=== PATIENT | female | born 1970 | race Hispanic/Latino ===

== ENCOUNTER 2018-02-02 13:52 | Inpatient (IN) | payer MEDICARE, MEDICAID ==
[2018-02-02 14:02] VITALS: BMI 42.4
--- NOTE | 2018-02-02 14:11 | ED PDOC ---
Arrival/HPI - General Chief Complaint: Psychiatric Evaluation Time Seen by Provider: 02/02/18 14:05 Historian: Patient - History of Present Illness Narrative History of Present Illness (Text): 02/02/18 14:10 47 year old female, with past medical history of Atrial fibrillation, sleep apnea, and seizure disorder, presents to the Emergency Department for psychiatric admission under Dr. Marcella valdivia. Patient denies any somatic complaints. Patient denies any suicidal or homicidal ideation. Patient denies any fever, chills, nausea, vomiting, diarrhea, abdominal pain, chest pain, shortness of breath, cough, headahce, dizziness, neck pain, back pain, or any other complaints. Time/Duration: Prior to Arrival Symptom Onset: Gradual Activities at Onset: Light Context: Home Past Medical History - Provider Review Nursing Documentation Reviewed: Yes - Infectious Disease Hx of Infectious Diseases: None - Reproductive Menopause: No - Cardiac Hx Atrial Fibrillation: Yes Hx Cardiac Arrhythmia: Yes (bradycardia with PPM) Hx Pacemaker: Yes - Pulmonary Hx Sleep Apnea: Yes - Neurological Hx Seizures: Yes (last seizure 1 mo ago) - HEENT Hx HEENT Disorder: No - Renal Hx Kidney Stones: Yes (3 mo ago) - Endocrine/Metabolic Hx Endocrine Disorders: No - Hematological/Oncological Hx Blood Disorders: No - Integumentary Hx Dermatological Disorder: No - Musculoskeletal/Rheumatological Hx Musculoskeletal Disorders: No - Gastrointestinal Hx Gastrointestinal Disorders: No - Genitourinary/Gynecological Hx Genitourinary Disorders: No - Psychiatric Hx Depression: Yes Hx Substance Use: No - Surgical History Other/Comment: Pace Maker - Anesthesia Hx Anesthesia: Yes Hx Anesthesia Reactions: No Hx Malignant Hyperthermia: No - Suicidal Assessment Feels Threatened In Home Enviroment: No Family/Social History - Physician Review Nursing Documentation Reviewed: Yes Family/Social History: No Known Family HX Smoking Status: Never Smoked Hx Alcohol Use: No Hx Substance Use: No Allergies/Home Meds Allergies/Adverse Reactions: Allergies codeine Allergy (Verified 02/02/18 19:57) RASH fluoxetine HCl [From Prozac] Allergy (Verified 02/02/18 19:57) ITCHING ketorolac tromethamine [From Toradol] Allergy (Verified 02/02/18 19:57) ITCHING oxycodone HCl [From Percocet] Allergy (Verified 02/02/18 14:07) RASH Home Medications: Home Meds Medication Instructions Recorded Confirmed Gabapentin [Neurontin] 600 mg PO TID 07/01/16 07/01/16 amLODIPine [Norvasc] 10 mg PO DAILY 07/01/16 07/01/16 busPIRone [Buspar] 20 mg PO BID 07/01/16 07/01/16 fluvoxaMINE [Fluvoxamine Maleate] 100 mg PO DAILY 07/01/16 07/01/16 fluvoxaMINE [Fluvoxamine Maleate] 150 mg PO HS 07/01/16 07/01/16 Review of Systems - Physician Review All systems were reviewed & negative as marked: Yes - Review of Systems Constitutional: absent: Fevers Respiratory: absent: SOB, Cough Cardiovascular: absent: Chest Pain, Palpitations Gastrointestinal: absent: Abdominal Pain, Diarrhea, Nausea, Vomiting Musculoskeletal: absent: Back Pain, Neck Pain Neurological: absent: Headache, Dizziness Physical Exam Vital Signs Reviewed: Yes Vital Signs Temp Pulse Resp BP Pulse Ox 02/02/18 13:52 97.6 F 60 16 98/66 L 96 Temperature: Afebrile Blood Pressure: Hypotensive Pulse: Regular Respiratory Rate: Normal Appearance: Positive for: Well-Appearing, Non-Toxic, Comfortable Pain Distress: None Mental Status: Positive for: Alert and Oriented X 3 - Systems Exam Head: Present: Atraumatic, Normocephalic Pupils: Present: PERRL Extroacular Muscles: Present: EOMI Conjunctiva: Present: Normal Mouth: Present: Moist Mucous Membranes Neck: Present: Normal Range of Motion Respiratory/Chest: Present: Clear to Auscultation, Good Air Exchange. No: Respiratory Distress, Accessory Muscle Use Cardiovascular: Present: Regular Rate and Rhythm, Normal S1, S2. No: Murmurs Abdomen: No: Tenderness, Distention, Peritoneal Signs Back: Present: Normal Inspection Upper Extremity: Present: Normal Inspection. No: Cyanosis, Edema Lower Extremity: Present: Normal Inspection. No: Edema Neurological: Present: GCS=15, CN II-XII Intact, Speech Normal Skin: Present: Warm, Dry, Normal Color. No: Rashes Psychiatric: Present: Alert, Oriented x 3, Normal Insight, Normal Concentration Medical Decision Making ED Course and Treatment: 02/02/18 14:16 Impression: 47 year old female presents to the Emergency Department for psychiatric admission. Plan: -- Psychiatric admission -- Reassess and disposition Prior Visits: Notes and results from previous visits were reviewed. Progress Notes: - Medication Orders Current Medication Orders: Acetaminophen (Tylenol 325mg Tab) 650 mg PO Q6H PRN PRN Reason: Pain, moderate (4-7) Clonazepam (Klonopin) 1 mg PO BID MARIO ALBERTO PRN Reason: Protocol Last Admin: 02/02/18 19:22 Dose: 1 mg Behavioural Document 02/02/18 19:22 ABO (Rec: 02/02/18 19:23 ABO [id number]) Maintenance Maintenance Dose Yes Re-Assess: Reassess Psych Meds Document 02/02/18 20:22 KM (Rec: 02/02/18 20:38 KM [id number]) Reassess Psych Med Effective Lorazepam (Ativan) 2 mg PO Q6 PRN; Protocol PRN Reason: Agitation Lorazepam (Ativan) 2 mg IM Q6H PRN; Protocol PRN Reason: Anxiety Oxcarbazepine (Trileptal) 600 mg PO BID MARIO ALBERTO PRN Reason: Protocol Last Admin: 02/02/18 19:22 Dose: 600 mg Behavioural Document 02/02/18 19:22 ABO (Rec: 02/02/18 19:22 ABO [id number]) Maintenance Maintenance Dose Yes Re-Assess: Reassess Psych Meds Document 02/02/18 20:22 KM (Rec: 02/02/18 20:38 KM [id number]) Reassess Psych Med Effective Zaleplon (Sonata) 5 mg PO HS PRN PRN Reason: Insomnia Ziprasidone (Geodon Cap) 20 mg PO BID MARIO ALBERTO PRN Reason: Protocol Last Admin: 02/02/18 19:22 Dose: 20 mg Behavioural Document 02/02/18 19:22 ABO (Rec: 02/02/18 19:22 ABO [id number]) Maintenance Maintenance Dose Yes Re-Assess: Reassess Psych Meds Document 02/02/18 20:22 KM (Rec: 02/02/18 20:38 KM [id number]) Reassess Psych Med Effective Ziprasidone (Geodon Inj) 20 mg IM Q6 PRN; Protocol PRN Reason: Agitation - Scribe Statement The provider has reviewed the documentation as recorded by the Scribe Noy Chauhan. All medical record entries made by the Scribe were at my direction and personally dictated by me. I have reviewed the chart and agree that the record accurately reflects my personal performance of the history, physical exam, medical decision making, and the department course for this patient. I have also personally directed, reviewed, and agree with the discharge instructions and disposition. Disposition/Present on Arrival - Present on Arrival Any Indicators Present on Arrival: No History of DVT/PE: No History of Uncontrolled Diabetes: No Urinary Catheter: No History of Decub. Ulcer: No History Surgical Site Infection Following: None - Disposition Have Diagnosis and Disposition been Completed?: Yes Diagnosis: Depression Disposition: HOSPITALIZED Disposition Time: 14:05 Condition: STABLE
[2018-02-02 15:17] VITALS: O2SAT 98
--- NOTE | 2018-02-02 19:59 | PCM.BM ---
<Venus Shrestha - Last Filed: 02/02/18 19:56> Treatment Plan Problems - Problems identified on initial assessmt ineffective coping skills Date Initiated: 02/02/18 Time Initiated: 21:00 Assessment reference: NA Status: Active Priority: 1 hopeless/helpless Date Initiated: 02/02/18 Time Initiated: 21:00 Assessment reference: NA Status: Active Priority: 2 sleep disturbance Date Initiated: 02/02/18 Time Initiated: 21:00 Assessment reference: NA Status: Active Treatment assets and liabiliti Patient Assests: cooperative, ADL independent, physically healthy, good support system, cognitively intact - Milieu Protocol Maintain good personal hygiene: every shift Encourage regular showers, every shift Remind patient to perform daily oral care, every shift Assist patient to perform ADL's Maintain personal safety: daily Educate patient to report safety concerns to staff, daily Monitor environment for contraband/sharps Medication safety: Monitor for expected outcome, potential side effects: daily, Assess barriers to learning: daily, Assess readiness for medication education: daily Discharge/Continuing Care - Education Needs Education Needs: Patient Medication, Patient Diagnosis/Disease Process, Patient Coping Skills, Patient Community resources, Patient Activities of Daily Living, Patient Nutrition, Patient Uses of Medical Equipment, Patient Health Practices/ Safety, Patient Personal Hygiene/Grooming, Patient Aftercare Safety Plan - Discharge Discharge Criteria: Tolerates medication w/o severe side effects, Free of Suicidal thoughts, Free of agitation, Normal sleep pattern, Ability to care for self, Reduction of target symptoms Discharge to:: Home <Marcella Amin - Last Filed: 02/03/18 14:15> - Diagnosis (1) OCD (obsessive compulsive disorder) Status: Acute Interventions: 02/03/18 14:13 Psychoeducation Psychopharmacology/adjustment of medications as needed/ monitoring possible side effects Evaluate pt on daily basis Compliance with medications and follow up appointments Suicide and homicide risk assessment and prevention, coping strategies, safety plan Relapse prevention Reduction of symptoms Improve functional status Family involvement CBT, SSRI, exposure response prevention as outpatient Supportive therapy (2) PTSD (post-traumatic stress disorder) Status: Acute Interventions: 02/03/18 14:14 Psychoeducation Psychopharmacology/adjustment of medications as needed/ monitoring possible side effects Evaluate pt on daily basis Discussion of importance of being compliant with medications and follow up appointments Suicide and homicide risk assessment and prevention, coping strategies, safety plan Reduction of symptoms Relaxation techniques and breathing exercises Improve functional status Family involvement Cognitive behavioral therapy as outpatient (3) Borderline personality disorder Status: Acute Interventions: 02/03/18 14:14 Psychoeducation Psychopharmacology/adjustment of medications as needed/ monitoring possible side effects Evaluate pt on daily basis Compliance with medications and follow up appointments Suicide and homicide risk assessment and prevention, coping strategies, safety plan Relapse prevention Family involvement As outpatient: Transference-focused psychotherapy/dialectical behavioral therapy /schema therapy Mindfulness skills (4) Bipolar 1 disorder Status: Acute Interventions: 02/03/18 14:14 Psychoeducation Psychopharmacology/adjustment of medications as needed/ monitoring possible side effects Monitor blood level of mood stabilizers Evaluate pt on daily basis Compliance with medications and follow up appointments Suicide and homicide risk assessment and prevention, coping strategies, safety plan Relapse prevention Reduction of symptoms Improve functional status Family involvement As outpatient: cognitive behavioral therapy
--- NOTE | 2018-02-03 10:48 | CP.PCM.PN ---
Subjective - Date & Time of Evaluation Date of Evaluation: 02/03/18 Time of Evaluation: 10:44 - Subjective Subjective: House Doctor Note Patient is a 47 yo F with PMH of a-fib, pacemaker 2/2 bradycardia, and seizure disorder admitted to psych, now complaining of chest pain. Patient states that chest pain started earlier this morning, midsternal, and does not radiate. Patient denies any inciting event, nor does she admit to any alleviating or aggravating factors. Patient denies palpitations. SOB, n/v/d, abdominal pain, fever, chills TSAI, or dizziness. Patient denies smoking. Patient states mother has hypertension, but no cardiac history in first degree relatives. Objective - Vital Signs/Intake and Output Vital Signs (last 24 hours): Temp Pulse Resp BP Pulse Ox 98.1 F 72 17 112/75 98 02/03/18 07:03 02/03/18 10:06 02/03/18 07:03 02/03/18 10:06 02/02/18 15:16 - Medications Medications: Current Medications Acetaminophen (Tylenol 325mg Tab) 650 mg PO Q6H PRN PRN Reason: Pain, moderate (4-7) Clonazepam (Klonopin) 1 mg PO BID MARIO ALBERTO PRN Reason: Protocol Last Admin: 02/03/18 08:59 Dose: 1 mg Lorazepam (Ativan) 2 mg PO Q6 PRN; Protocol PRN Reason: Agitation Lorazepam (Ativan) 2 mg IM Q6H PRN; Protocol PRN Reason: Anxiety Oxcarbazepine (Trileptal) 600 mg PO BID MARIO ALBERTO PRN Reason: Protocol Last Admin: 02/03/18 08:59 Dose: 600 mg Zaleplon (Sonata) 5 mg PO HS PRN PRN Reason: Insomnia Ziprasidone (Geodon Cap) 20 mg PO BID MARIO ALBERTO PRN Reason: Protocol Last Admin: 02/03/18 08:59 Dose: 20 mg Ziprasidone (Geodon Inj) 20 mg IM Q6 PRN; Protocol PRN Reason: Agitation - Constitutional Appears: No Acute Distress - Head Exam Head Exam: ATRAUMATIC, NORMAL INSPECTION, NORMOCEPHALIC - Eye Exam Eye Exam: EOMI, Normal appearance, PERRL - ENT Exam ENT Exam: Mucous Membranes Moist, Normal Exam - Neck Exam Neck Exam: Full ROM, Normal Inspection. absent: Lymphadenopathy - Respiratory Exam Respiratory Exam: Clear to Ausculation Bilateral, NORMAL BREATHING PATTERN - Cardiovascular Exam Cardiovascular Exam: REGULAR RHYTHM, +S1, +S2. absent: Murmur Additional comments: Reproducible midsternal chest pain - GI/Abdominal Exam GI & Abdominal Exam: Soft, Normal Bowel Sounds. absent: Tenderness - Extremities Exam Extremities Exam: Full ROM, Normal Capillary Refill, Normal Inspection. absent : Joint Swelling, Pedal Edema - Back Exam Back Exam: NORMAL INSPECTION - Neurological Exam Neurological Exam: Alert, Awake, CN II-XII Intact, Normal Gait, Oriented x3 Assessment and Plan - Assessment and Plan (Free Text) Assessment: 47 yo F with PMH of a-fib, pacemaker 2/2 bradycardia, and seizures admitted to psych, now c/o chest pain. Plan: - Medical consult placed to Dr. Raymundo, who was notified by nursing staff - Cardiac enzymes - EKG
[2018-02-03 11:25] LABS: TROPONIN I < 0.01 ng/mL
[2018-02-03 11:48] LABS: CK-MB 1.1 ng/mL (0.0-3.6)
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
--- NOTE | 2018-02-03 21:49 | PN ---
Copied To: Kishan Raymundo MD Attending MD: Kishan Raymundo MD DATE: 02/03/2018 MEDICAL NOTE ON PATIENT IN THE BEHAVIORAL CARE UNIT SUBJECTIVE: The patient was admitted under Dr. Marcella Amin. Last admission was at [facility] in [place]. The patient presented with chest pain. She also has history of psychotic behavior, has had an attempt of self mutilation. The patient also has past history of syncope, associated seizure, multiple episodes of seizures and syncope secondary to bradycardia. The patient has a pacemaker implanted, which is a demand pacemaker. The patient has a cardiac history. The patient is not on any cardiac medications at this time. She did complain of some chest pain this morning and the patient was evaluated with cardiac enzymes and the troponin level was within normal range. EKG did not show any acute findings. However, the patient was admitted to Behavioral Care Unit under Dr. Marcella Amin and the patient is kept under observation. PHYSICAL EXAMINATION: VITAL SIGNS: The patient's pulse is 72 and normal sinus rhythm, the blood pressure is 112/75, respirations 17, O2 sat is 98% on room air. HEENT: The patient's head is normocephalic. NECK: The thyroid is not enlarged. The carotid pulses are present. JVP is flat. LUNGS: Trachea central. Breath sounds vesicular. No adventitious sounds heard. HEART: Normal sinus rhythm. S1 and S2 present. No murmurs. ABDOMEN: Soft. Liver and spleen not palpable. GLOVE FORMER: The patient is conscious, seemed to be able to answer all questions. She has no gait problem. She walks very well. LABORATORY DATA: The patient's blood work shows creatine kinase of 278, but the troponin was normal, less than 0.01. The patient's CBC was not done. The EKG shows normal sinus rhythm with ST changes with . The patient has possible anterior wall ischemia. MEDICATIONS: The patient's medications consist of Ativan 2 mg every 6 hours. The patient is on Geodon 20 mg b.i.d. and 20 mg IM p.r.n. for agitation. The patient is on Klonopin 1 mg b.i.d., Paxil 20 mg daily. The patient is on Sonata 5 mg at night. The patient also gets oxcarbazepine 600 mg p.o. b.i.d., is an anticonvulsant. The patient's condition seemed to be stable at this time. We will have to monitor the patient for the cardiac abnormalities. We will repeat her blood work in the morning and also repeat her EKG again in the morning. In the meantime, we will keep a close eye on the patient. Kishan Raymundo MD MTDD
--- NOTE | 2018-02-03 23:25 | CARD ---
APPROVED REPORT Date of service: 02/03/2018 EKG Measurement Heart [id number] <Conclusion> Electronic atrial pacemaker Possible Anterior infarct, age undetermined Abnormal ECG
[2018-02-04 08:15] LABS: BASO # 0.02 K/mm3 (0.0-2.0); BASO % 0.2 % (0.0-3.0); EOS # 0.1 (0.0-0.7); EOS % 1.2 % (1.5-5.0); GRAN # 7.76 (1.4-6.5); GRAN % 78.1 % (50.0-68.0); HEMOGLOBIN 14.4 g/dL (12.0-16.0); LYMPH # 1.6 (1.2-3.4); LYMPH % 16.4 % (22.0-35.0); MEAN CORPUSCULAR HEMOGLOBIN 29.5 pg (25.0-35.0); MEAN CORPUSCULAR HGB CONC 34.7 g/dl (31.0-37.0); MEAN PLATELET VOLUME 9.3 fl (7.0-11.0); MONO # 0.4 (0.1-0.6); MONO % 4.1 % (1.0-6.0); RBC 4.88 10^6/uL (3.5-6.1); RED CELL DISTRIBUTION WIDTH 12.7 % (11.5-14.5); WHITE BLOOD COUNT 9.9 10^3/ul (4.5-11.0)
[2018-02-04 08:26] LABS: ALBUMIN 4.4 g/dL (3.0-4.8); ALT/SGPT 28 U/L (7-56); AST/SGOT 31 U/L (14-36); BLOOD UREA NITROGEN 18 mg/dL (7-21); CALCIUM 9.3 mg/dL (8.4-10.5); GFR NON-AFRICAN AMERICAN > 60
[2018-02-04 08:38] LABS: TROPONIN I < 0.01 ng/mL
[2018-02-04 08:43] LABS: CK-MB 0.9 ng/mL (0.0-3.6)
[2018-02-04] MEDS ORDERED: DiphenhydrAMINE 50 mg/ml Inj IM STA (09:25)
--- NOTE | 2018-02-04 10:28 | PN ---
Copied To: Kishan Raymundo MD Attending MD: Kishan Raymundo MD DATE: 02/04/2018 LOCATION: The patient is in Behavioral Care Unit room 518, bed 1. SUBJECTIVE: The patient is seen this morning, very agitated. She has been supervised very closely. PHYSICAL EXAMINATION: VITAL SIGNS: Pulse is 64, blood pressure 99/60, respirations are 20. HEART: Normal sinus rhythm. S1, S2 present. No murmur. LUNGS: Clear. ABDOMEN: Soft. Liver, spleen not palpable. FREIGHT BROKER AGENT: No focal deficit. The patient is very agitated and seems to be walking around in the room. MEDICATIONS: The patient is on Ativan, Geodon, clonazepam, Klonopin, paroxetine which is Paxil and Sonata. The patient also gets 600 mg of oxcarbazepine b.i.d. for prevention of convulsion. LABORATORY DATA: The patient's white count is 9900. The patient's chemistry: The patient has slightly elevated creatinine kinase. The patient's troponin is within normal range, less than 0.01. ASSESSMENT AND PLAN: We will follow up because the patient has a past history of a pacemaker insertion for syncope and secondary seizure. The current EKG shows normal sinus rhythm and nonspecific ST-T wave changes. Kishan Raymundo MD AIDE
[2018-02-04] MEDS ORDERED: DiphenhydrAMINE 50 mg/ml Inj IM PRN (14:43)
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
--- NOTE | 2018-02-04 19:18 | CARD ---
APPROVED REPORT Date of service: 02/04/2018 EKG Measurement Heart [id number] <Conclusion> Normal sinus rhythm Anterior infarct, age undetermined Abnormal ECG
--- NOTE | 2018-02-05 09:10 | CP.PCM.PN ---
Subjective - Date & Time of Evaluation Date of Evaluation: 02/05/18 Time of Evaluation: 08:15 - Subjective Subjective: Patient is seen this morning. She is less agitated. Objective - Vital Signs/Intake and Output Vital Signs (last 24 hours): Temp Pulse Resp BP Pulse Ox 98.5 F 63 20 101/48 L 98 02/05/18 07:22 02/05/18 07:22 02/05/18 07:22 02/05/18 07:22 02/02/18 15:16 - Medications Medications: Current Medications Acetaminophen (Tylenol 325mg Tab) 650 mg PO Q6H PRN PRN Reason: Pain, moderate (4-7) Clonazepam (Klonopin) 1 mg PO TID MARIO ALBERTO PRN Reason: Protocol Last Admin: 02/04/18 18:17 Dose: 1 mg Diphenhydramine HCl (Benadryl) 50 mg IM Q6H PRN PRN Reason: agitaiton Diphenhydramine HCl (Benadryl) 50 mg PO Q6 PRN PRN Reason: Agitation Haloperidol (Haldol) 5 mg PO Q6H PRN; Protocol PRN Reason: agitation/psychosis Haloperidol Lactate (Haldol) 5 mg IM Q6H PRN; Protocol PRN Reason: severe agitation/aggression Lorazepam (Ativan) 2 mg PO Q6 PRN; Protocol PRN Reason: Agitation Lorazepam (Ativan) 2 mg IM Q6H PRN; Protocol PRN Reason: Anxiety Last Admin: 02/04/18 08:49 Dose: 2 mg Oxcarbazepine (Trileptal) 600 mg PO BID MARIO ALBERTO PRN Reason: Protocol Last Admin: 02/04/18 16:36 Dose: 600 mg Paroxetine HCl (Paxil) 20 mg PO HS MARIO ALBERTO Last Admin: 02/04/18 21:03 Dose: 20 mg Zaleplon (Sonata) 5 mg PO HS PRN PRN Reason: Insomnia Last Admin: 02/04/18 21:04 Dose: 5 mg Ziprasidone (Geodon Cap) 20 mg PO BID MARIO ALBERTO PRN Reason: Protocol Last Admin: 02/04/18 16:39 Dose: 20 mg - Labs Labs: 02/04/18 08:10 02/04/18 08:10 - Constitutional Appears: No Acute Distress - Head Exam Head Exam: ATRAUMATIC, NORMOCEPHALIC - Respiratory Exam Respiratory Exam: Clear to Ausculation Bilateral, NORMAL BREATHING PATTERN - Cardiovascular Exam Cardiovascular Exam: +S1, +S2 Assessment and Plan - Assessment and Plan (Free Text) Assessment: History of pacemaker Bipolar disorder agitation Plan: continue psychiatric treatment as per psychiatry continue to monitor as patient has pacemaker
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
--- NOTE | 2018-02-05 16:43 | CP.PCM.PN ---
Subjective - Date & Time of Evaluation Date of Evaluation: 02/05/18 Time of Evaluation: 16:32 - Subjective Subjective: House Doctor Note I notified by nurse about possible seizure. On exam, patient was not responsive to questioning and was staring off. She displayed some spastic tongue movements and wrist rigidity. No tremors or abnormal movements noted in lower torso or lower extremities. Ativan was administered with resolution of abnormal movements. However, patient was still unresponsive to verbal questioning or sternal rub. However, patient was exhibiting protecting behaviors. When arm was lifted by side and dropped, it fell without resistance. But when her arm was lifted over head patient was slowed her fall and moved her arm to avoid it from hitting her head. Patient also blinked when snapped at. Babinski is negative/ downward response. Reflexes WNL. Heart was RRR, lungs CTAB. CT head ordered to r /o CVA. Would recommend neurology consultation. Nurse placed call to notify Dr. Raymundo, medical consult, for further orders. Objective - Vital Signs/Intake and Output Vital Signs (last 24 hours): Temp Pulse Resp BP Pulse Ox 98.5 F 63 20 101/48 L 98 02/05/18 07:22 02/05/18 07:22 02/05/18 07:22 02/05/18 07:22 02/02/18 15:16 - Medications Medications: Current Medications Acetaminophen (Tylenol 325mg Tab) 650 mg PO Q6H PRN PRN Reason: Pain, moderate (4-7) Clonazepam (Klonopin) 1 mg PO TID MARIO ALBERTO PRN Reason: Protocol Last Admin: 02/05/18 13:16 Dose: 1 mg Diphenhydramine HCl (Benadryl) 50 mg IM Q6H PRN PRN Reason: agitaiton Diphenhydramine HCl (Benadryl) 50 mg PO Q6 PRN PRN Reason: Agitation Haloperidol (Haldol) 5 mg PO Q6H PRN; Protocol PRN Reason: agitation/psychosis Haloperidol Lactate (Haldol) 5 mg IM Q6H PRN; Protocol PRN Reason: severe agitation/aggression Lorazepam (Ativan) 2 mg PO Q6 PRN; Protocol PRN Reason: Agitation Lorazepam (Ativan) 2 mg IM Q6H PRN; Protocol PRN Reason: Anxiety Last Admin: 02/05/18 16:15 Dose: 2 mg Oxcarbazepine (Trileptal) 600 mg PO BID MARIO ALBERTO PRN Reason: Protocol Last Admin: 02/05/18 08:36 Dose: 600 mg Paroxetine HCl (Paxil) 30 mg PO HS MARIO ALBERTO Zaleplon (Sonata) 5 mg PO HS PRN PRN Reason: Insomnia Last Admin: 02/04/18 21:04 Dose: 5 mg Ziprasidone (Geodon Cap) 20 mg PO BID MARIO ALBERTO PRN Reason: Protocol Last Admin: 02/05/18 08:36 Dose: 20 mg - Labs Labs: 02/04/18 08:10 02/04/18 08:10
--- NOTE | 2018-02-05 18:43 | CT ---
Date of service: 02/05/2018 PROCEDURE: CT HEAD WITHOUT CONTRAST. HISTORY: r/o CVA COMPARISON: None available. TECHNIQUE: Axial computed tomography images were obtained through the head/brain without intravenous contrast. Radiation dose: Total exam DLP = 1261.66 mGy-cm. This CT exam was performed using one or more of the following dose reduction techniques: Automated exposure control, adjustment of the mA and/or kV according to patient size, and/or use of iterative reconstruction technique. FINDINGS: HEMORRHAGE: No intracranial hemorrhage. BRAIN: No mass effect or edema. The condon-white matter differentiation appears intact. Please note that MRI with diffusion imaging is more sensitive in the detection of acute ischemic event. VENTRICLES: No hydrocephalus. CALVARIUM: Unremarkable. PARANASAL SINUSES: Unremarkable as visualized. No significant inflammatory changes. MASTOID AIR CELLS: Unremarkable as visualized. No inflammatory changes. OTHER FINDINGS: None. IMPRESSION: No acute intracranial pathology identified. Please note that MRI with diffusion imaging is more sensitive in the detection of acute ischemic event.
--- NOTE | 2018-02-06 11:18 | PCM.PYCHPN ---
Psychiatric Progress Note - Psychiatric Progress Note Patient seen today, length of contact: 30min Problems Identified/Issues Discussed: I reviewed recent notes and met with patient at bedside. She is superficially cooperative with questioning, affect is preoccupied and mildly labile. Grooming is acceptable and patient is oriented x3. She reports that she is "doing okay". She "feels better" and "sleeps" better. She denies any perceptual disturbance including paranoia. Patient wasn't observed to be responding to internal stimuli. There were no major behavioral issues overnight though patient did have episodes of agitation/aggression x2 days ago. She was screaming and punching jones necessitating IM prn of Geodon and Haldol. She is not social and generally keeps to herself. Seen pacing the unit and has required ativan prn for anxiety. Diagnostic Results: bipolar type I most recent episode mixed Patient has history of borderline personality disorder OCD PTSD Social anxiety Medication Change: No (changed yesterday 02/04/2018) Medical Record Reviewed: Yes Mental Status Examination - Cognitive Function Orientation: Person, Place, Situation, Time Memory: Intact Attention: Poor Concentration: Poor Association: Loose Fund of Knowledge: Poor - Mood Mood: Depressed (I feel little better), Anxious - Affect Affect: Constricted - Speech Speech: Appropriate - Formal Thought Process Formal Thought Process: No Impairment - Suicidal Ideation Suicidal Ideation: No - Homicidal Ideation Homicidal Ideation: No Goal/Treatment Plan - Goal/Treatment Plan Need for Continued Stay: Remain at risks for inpatient hospitalization, Severe depression anxiety, Discharge may exacerbated symptoms, Failed transitioning, Severe functional impairment Progress Toward Problem(s) and Goals/Treatment Plan: c/w current tx and plan No new weekend lab results thus far Vitals reviewed and noted below: Selected Entries 02/05/18 02/05/18 07:22 16:00 Temperature 98.5 F Pulse Rate 63 61 Respiratory 20 Rate Blood Pressure 101/48 L 107/58 L Estimated Date of D/C: 02/12/18
--- NOTE | 2018-02-06 12:16 | PN ---
Copied To: Kishan Raymundo MD Attending MD: Kishan Raymudno MD DATE: 02/06/2018 LOCATION: The patient is in [facility] Care Unit, [facility]. SUBJECTIVE: The patient is not seen this morning, was sleeping and according to the nurse, the patient has been sleeping all night without any incident. In the evening yesterday, the patient had an episode where she was unresponsive. She apparently had a pseudoseizure. She was also on examination, catatonic. She had no physical examination evidence of stroke or evidence of actual seizure results like state of unconsciousness. She was showing signs of activity, movement of hands and also lips accordingly. The patient had evaluation with a CAT scan to rule out any acute intracranial disease; it was not found. PHYSICAL EXAMINATION: VITAL SIGNS: This morning, pulse is 63, blood pressure 111/50, respirations are 18, temperature 97.8. GENERAL: The patient appears to be resting. The general examination is conducted. She has vitals signs noted. HEAD: Normocephalic. NECK: The thyroid is not enlarged. There is no evidence of any lymph nodes. LUNGS: Trachea central. Breath sounds are vesicular. HEART: Normal sinus rhythm. The patient has a pacemaker, but is not active. ABDOMEN: Soft. Obesity present. EQUIPMENT SALES SPECIALIST: No focal neurological deficit noted. ASSESSMENT AND PLAN: The patient was not noticed to have any cardiac abnormality at the time of the episode yesterday. Her pulse and blood pressure were available and noted. We will continue current management and neurological evaluation is requested. We will follow up. MEDICATIONS: Consists of Ativan; the patient is on Benadryl; Geodon; Haldol; Ativan; clonazepam, which is Klonopin; these medications are prescribed by the behavioral care physician, Dr. Marcella Amin. ALLERGIES: THE PATIENT HAS ALLERGY TO PAXIL, CODEINE, TORADOL, AND OXYCODONE. LABORATORY DATA: When evaluated, the blood test, her last CBC was within normal range. The patient's chemistry, also blood sugar was 106 and all other parameters were within normal range. Kishan Raymundo MD AIDE
--- NOTE | 2018-02-07 11:09 | PCM.PYCHPN ---
Psychiatric Progress Note - Psychiatric Progress Note Patient seen today, length of contact: 30min Problems Identified/Issues Discussed: I reviewed recent notes and met with patient at bedside. She is superficially cooperative with questioning, affect is preoccupied and mildly labile. Grooming is acceptable and patient is oriented x3. She reports that she is "doing okay". She states that she "feels better" and "sleeps better". She denies any perceptual disturbance including paranoia. Patient wasn't observed to be responding to internal stimuli. Patient has generally been calm and cooperative. There was an episode of verbal agitation on Thursday. Patient started yelling and could not be redirected from disturbing the milieu. Patient was given Haldol 5mg IM, Benadryl 50mg IM and Ativan 2 mg IM. She spent time in the quiet room and there were no further episodes. PACT was also able to visit with her without incident on Thursday. Diagnostic Results: bipolar type I most recent episode mixed Patient has history of borderline personality disorder OCD PTSD Social anxiety Medication Change: No (changed yesterday 02/04/2018) Medical Record Reviewed: Yes Mental Status Examination - Cognitive Function Orientation: Person, Place, Situation, Time Memory: Intact Attention: Poor Concentration: Poor Association: Loose Fund of Knowledge: Poor - Mood Mood: Depressed (I feel little better), Anxious - Affect Affect: Constricted - Speech Speech: Appropriate - Formal Thought Process Formal Thought Process: No Impairment - Suicidal Ideation Suicidal Ideation: No - Homicidal Ideation Homicidal Ideation: No Goal/Treatment Plan - Goal/Treatment Plan Need for Continued Stay: Remain at risks for inpatient hospitalization, Severe depression anxiety, Discharge may exacerbated symptoms, Failed transitioning, Severe functional impairment Progress Toward Problem(s) and Goals/Treatment Plan: c/w current tx and plan Appreciate Dr. Raymundo's f/u on 02/06/18 regarding patient's possible pseudoseizure on 02/05/18. There are no new recommendations. New weekend lab result noted below: 02/06/18 06:45 Prolactin 50.2 H Vitals reviewed and noted below: Selected Entries 02/06/18 07:20 Temperature 97.8 F Pulse Rate 63 Respiratory 18 Rate Blood Pressure 100/50 L Estimated Date of D/C: 02/12/18
--- NOTE | 2018-02-07 11:55 | CP.PCM.PN ---
Subjective - Date & Time of Evaluation Date of Evaluation: 02/07/18 Time of Evaluation: 08:15 - Subjective Subjective: Patient is admitted to behavioral care unit with agitation and bipolar disorder. Objective - Vital Signs/Intake and Output Vital Signs (last 24 hours): Temp Pulse Resp BP Pulse Ox 98.3 F 59 L 20 115/66 98 02/07/18 07:41 02/07/18 07:41 02/07/18 07:41 02/07/18 07:41 02/02/18 15:16 - Medications Medications: Current Medications Acetaminophen (Tylenol 325mg Tab) 650 mg PO Q6H PRN PRN Reason: Pain, moderate (4-7) Clonazepam (Klonopin) 1 mg PO TID MARIO ALBERTO PRN Reason: Protocol Last Admin: 02/07/18 08:29 Dose: 1 mg Diphenhydramine HCl (Benadryl) 50 mg IM Q6H PRN PRN Reason: agitaiton Last Admin: 02/06/18 15:04 Dose: 50 mg Diphenhydramine HCl (Benadryl) 50 mg PO Q6 PRN PRN Reason: Agitation Haloperidol (Haldol) 5 mg PO Q6H PRN; Protocol PRN Reason: agitation/psychosis Haloperidol Lactate (Haldol) 5 mg IM Q6H PRN; Protocol PRN Reason: severe agitation/aggression Last Admin: 02/06/18 15:01 Dose: 5 mg Lorazepam (Ativan) 2 mg PO Q6 PRN; Protocol PRN Reason: Agitation Last Admin: 02/06/18 09:45 Dose: 2 mg Lorazepam (Ativan) 2 mg IM Q6H PRN; Protocol PRN Reason: Anxiety Last Admin: 02/06/18 15:14 Dose: 2 mg Oxcarbazepine (Trileptal) 600 mg PO BID MARIO ALBERTO PRN Reason: Protocol Last Admin: 02/07/18 08:29 Dose: 600 mg Paroxetine HCl (Paxil) 30 mg PO HS MARIO ALBERTO Last Admin: 02/06/18 22:24 Dose: 30 mg Zaleplon (Sonata) 5 mg PO HS PRN PRN Reason: Insomnia Last Admin: 02/06/18 22:29 Dose: 5 mg Ziprasidone (Geodon Cap) 20 mg PO BID MARIO ALBERTO PRN Reason: Protocol Last Admin: 02/07/18 08:29 Dose: 20 mg - Labs Labs: 02/04/18 08:10 02/04/18 08:10 - Constitutional Appears: No Acute Distress - Head Exam Head Exam: ATRAUMATIC, NORMOCEPHALIC - Respiratory Exam Respiratory Exam: Clear to Ausculation Bilateral - Cardiovascular Exam Cardiovascular Exam: REGULAR RHYTHM, +S1, +S2 - GI/Abdominal Exam GI & Abdominal Exam: Soft, Normal Bowel Sounds. absent: Tenderness Assessment and Plan - Assessment and Plan (Free Text) Assessment: Bipolar disorder history of pacemaker/chest pain seizure disorder Plan: Patient had episode of seizure vs. pseudoseizure which resolved with Ativan. CT Head negative for any acute abnormalities. Neurology consultation has been ordered. Patient denies chest pain. EKG with no acute abnormalities. continue behavioral management as per psychiatry.
--- NOTE | 2018-02-07 11:59 | CP.PCM.CON ---
History of Present Illness - History of Present Illness History of Present Illness: 47 yr old woman with a history of epilepsy, and pseudoseizures, maintained on trileptal 600 mg bid by outside physician admitted to the inpatient psych unit. Miss betts is not able to delineate the exact semiology of her events, but says that she has both confusional spells and pseudoseizures. There is no history of MRI or EEg. ROS: no headache, no aphasia, no weakness, no dysarthria. PMH/PSH: FH/SH All: on exam: Normal neurological examination. Past Patient History - Infectious Disease Hx of Infectious Diseases: None - Past Social History Smoking Status: Never Smoked - CARDIAC Hx Atrial Fibrillation: Yes Hx Cardia Arrhythmia: Yes (bradycardia with PPM) Hx Pacemaker: Yes - PULMONARY Hx Sleep Apnea: Yes - NEUROLOGICAL Hx Seizures: Yes (last seizure 1 mo ago) - HEENT Hx HEENT Problems: No - RENAL Hx Kidney Stones: Yes (3 mo ago) - ENDOCRINE/METABOLIC Hx Endocrine Disorders: No - HEMATOLOGICAL/ONCOLOGICAL Hx Blood Disorders: No - INTEGUMENTARY Hx Dermatological Problems: No - MUSCULOSKELETAL/RHEUMATOLOGICAL Hx Musculoskeletal Disorders: No - GASTROINTESTINAL Hx Gastrointestinal Disorders: No - GENITOURINARY/GYNECOLOGICAL Hx Genitourinary Disorders: No - PSYCHIATRIC Hx Depression: Yes Hx Substance Use: No - SURGICAL HISTORY Other/Comment: Pace Maker - ANESTHESIA Hx Anesthesia: Yes Hx Anesthesia Reactions: No Hx Malignant Hyperthermia: No Meds Allergies/Adverse Reactions: Allergies Allergy/AdvReac Type Severity Reaction Status Date / Time codeine Allergy RASH Verified 02/02/18 19:57 fluoxetine HCl [From Prozac] Allergy ITCHING Verified 02/02/18 19:57 ketorolac tromethamine Allergy ITCHING Verified 02/02/18 19:57 [From Toradol] oxycodone HCl [From Percocet] Allergy RASH Verified 02/02/18 14:07 - Medications Medications: Current Medications Acetaminophen (Tylenol 325mg Tab) 650 mg PO Q6H PRN PRN Reason: Pain, moderate (4-7) Clonazepam (Klonopin) 1 mg PO TID MARIO ALBERTO PRN Reason: Protocol Last Admin: 02/07/18 08:29 Dose: 1 mg Diphenhydramine HCl (Benadryl) 50 mg IM Q6H PRN PRN Reason: agitaiton Last Admin: 02/06/18 15:04 Dose: 50 mg Diphenhydramine HCl (Benadryl) 50 mg PO Q6 PRN PRN Reason: Agitation Haloperidol (Haldol) 5 mg PO Q6H PRN; Protocol PRN Reason: agitation/psychosis Haloperidol Lactate (Haldol) 5 mg IM Q6H PRN; Protocol PRN Reason: severe agitation/aggression Last Admin: 02/06/18 15:01 Dose: 5 mg Lorazepam (Ativan) 2 mg PO Q6 PRN; Protocol PRN Reason: Agitation Last Admin: 02/06/18 09:45 Dose: 2 mg Lorazepam (Ativan) 2 mg IM Q6H PRN; Protocol PRN Reason: Anxiety Last Admin: 02/06/18 15:14 Dose: 2 mg Oxcarbazepine (Trileptal) 600 mg PO BID MARIO ALBERTO PRN Reason: Protocol Last Admin: 02/07/18 08:29 Dose: 600 mg Paroxetine HCl (Paxil) 30 mg PO HS MARIO ALBERTO Last Admin: 02/06/18 22:24 Dose: 30 mg Zaleplon (Sonata) 5 mg PO HS PRN PRN Reason: Insomnia Last Admin: 02/06/18 22:29 Dose: 5 mg Ziprasidone (Geodon Cap) 20 mg PO BID MARIO ALBERTO PRN Reason: Protocol Last Admin: 02/07/18 08:29 Dose: 20 mg Results - Vital Signs Recent Vital Signs: Last Vital Signs Temp 98.3 F 02/07/18 07:41 Pulse 59 L 02/07/18 07:41 Resp 20 02/07/18 07:41 BP 115/66 02/07/18 07:41 Pulse Ox 98 02/02/18 15:16 - Labs Result Diagrams: 02/04/18 08:10 02/04/18 08:10 Labs: Laboratory Results - last 24 hr 02/06/18 06:45 Prolactin 50.2 H Assessment & Plan - Assessment and Plan (Free Text) Assessment: 47 yr old woman with what appears to be non epileptic events per history. However, she is on trileptal and i recommend continuing this medication, as trileptal is beneficial in pseudoseizures as well. I would also recommend an EEG. THank you Dr. muhammad
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
--- NOTE | 2018-02-09 10:38 | PN ---
Copied To: Kishan Raymundo MD Attending MD: Kishan Raymundo MD DATE: 02/09/2018 LOCATION: The patient is in [facility], Room 518, bed 1. SUBJECTIVE: The patient is admitted with depression. The patient has pseudoseizures and the patient also has a cardiac pacemaker for syncope. She is on antidepressant and antipsychotic medications. PHYSICAL EXAMINATION: GENERAL: This morning, she is able to walk. She seemed to be pleasant today. VITAL SIGNS: Pulse is 67, blood pressure 115/73, respirations are 18, O2 saturation is 100% on room air. LUNGS: Clear. HEART: Normal sinus rhythm. ABDOMEN: Soft. Liver and spleen not palpable. SPORTS ATTORNEY: The patient is conscious, answers all questions. No focal neurological deficit. LABORATORY DATA: The patient's blood work done on 02/04/2018 are within normal range. The patient's blood sugar is 106. Prolactin level is 50.2. With significance of this, the patient possibly might have prolactinoma. This will have to be evaluated. Neurologist is on the case. We will continue current management for all major psychiatric evaluations and treatment and the patient is clinically stable now in the department, but the patient needs behavioral disorder management and under observation. Kishan Raymundo MD
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
[2018-02-10 07:22] VITALS: RESP 20
--- NOTE | 2018-02-10 21:00 | CP.PCM.PN ---
Subjective - Date & Time of Evaluation Date of Evaluation: 02/10/18 Time of Evaluation: 08:25 - Subjective Subjective: Patient has history of pseudoseizures and pacemaker for syncope. Objective - Vital Signs/Intake and Output Vital Signs (last 24 hours): Temp Pulse Resp BP Pulse Ox 97.7 F 64 20 109/67 98 02/10/18 07:22 02/10/18 16:05 02/10/18 07:22 02/10/18 16:05 02/02/18 15:16 - Medications Medications: Current Medications Acetaminophen (Tylenol 325mg Tab) 650 mg PO Q6H PRN PRN Reason: Pain, moderate (4-7) Clonazepam (Klonopin) 1 mg PO TID MARIO ALBERTO PRN Reason: Protocol Last Admin: 02/10/18 17:13 Dose: 1 mg Diphenhydramine HCl (Benadryl) 50 mg IM Q6H PRN PRN Reason: agitaiton Last Admin: 02/06/18 15:04 Dose: 50 mg Diphenhydramine HCl (Benadryl) 50 mg PO Q6 PRN PRN Reason: Agitation Haloperidol (Haldol) 5 mg PO Q6H PRN; Protocol PRN Reason: agitation/psychosis Haloperidol Lactate (Haldol) 5 mg IM Q6H PRN; Protocol PRN Reason: severe agitation/aggression Last Admin: 02/06/18 15:01 Dose: 5 mg Lorazepam (Ativan) 2 mg PO Q6 PRN; Protocol PRN Reason: Agitation Last Admin: 02/06/18 09:45 Dose: 2 mg Lorazepam (Ativan) 2 mg IM Q6H PRN; Protocol PRN Reason: Anxiety Last Admin: 02/06/18 15:14 Dose: 2 mg Oxcarbazepine (Trileptal) 600 mg PO BID MARIO ALBERTO PRN Reason: Protocol Last Admin: 02/10/18 17:12 Dose: 600 mg Paroxetine HCl (Paxil) 40 mg PO HS MARIO ALBERTO Last Admin: 02/09/18 21:19 Dose: 40 mg Zaleplon (Sonata) 5 mg PO HS PRN PRN Reason: Insomnia Last Admin: 02/09/18 21:19 Dose: 5 mg Ziprasidone (Geodon Cap) 20 mg PO BID MARIO ALBERTO PRN Reason: Protocol Last Admin: 02/10/18 17:13 Dose: 20 mg Ziprasidone (Geodon Cap) 20 mg PO HS MARIO ALBERTO PRN Reason: Protocol Last Admin: 02/09/18 21:19 Dose: 20 mg - Labs Labs: 02/04/18 08:10 02/04/18 08:10 - Constitutional Appears: No Acute Distress - Head Exam Head Exam: ATRAUMATIC, NORMOCEPHALIC - Respiratory Exam Respiratory Exam: Clear to Ausculation Bilateral, NORMAL BREATHING PATTERN - Cardiovascular Exam Cardiovascular Exam: +S1, +S2 - GI/Abdominal Exam GI & Abdominal Exam: Soft, Normal Bowel Sounds. absent: Tenderness Assessment and Plan - Assessment and Plan (Free Text) Assessment: history of cardiac pacemaker history of pseudoseizures Plan: continue behavioral treatment as per psychiatry patient undergoing neurological evaluation for peudoseizures and high prolactin
--- NOTE | 2018-02-11 05:47 | PCM.PYCHPN ---
Psychiatric Progress Note - Psychiatric Progress Note Patient seen today, length of contact: 30min Problems Identified/Issues Discussed: I reviewed recent notes and met with patient at bedside and during treatment team meeting. I am familiar with her from my prior interviews with her during this admission. She is cooperative and more engaged today. Her affect is definitely more related and reactive though still remains mildly labile. Grooming is acceptable and patient is oriented x3. She reports that she is "doing much better". She states that she "feels better" and "sleeps better". She denies any perceptual disturbance including paranoia. Thought process is coherent without evidence of disorganization. Patient wasn't observed to be responding to internal stimuli. She denies any side effects, new discomfort or pain. Patient has generally been calm and cooperative on the unit this week. Per Dr. Amin's note from 02/09/18, patient's last episodes of agitation and aggression was 02/06/18, she required IM PRN at the time. Diagnostic Results: bipolar type I most recent episode mixed Patient has history of borderline personality disorder OCD PTSD Social anxiety Medication Change: No ( ) Medical Record Reviewed: Yes Mental Status Examination - Cognitive Function Orientation: Person, Place, Situation, Time Memory: Intact Attention: Poor (some improvement) Concentration: Poor (some improvement) Association: Loose (some improvement) Fund of Knowledge: Poor - Mood Mood: Depressed (I feel little better), Anxious - Affect Affect: Constricted (but more reactive) - Speech Speech: Appropriate - Formal Thought Process Formal Thought Process: No Impairment - Suicidal Ideation Suicidal Ideation: No - Homicidal Ideation Homicidal Ideation: No Goal/Treatment Plan - Goal/Treatment Plan Need for Continued Stay: Remain at risks for inpatient hospitalization, Severe depression anxiety, Discharge may exacerbated symptoms, Failed transitioning, Severe functional impairment Progress Toward Problem(s) and Goals/Treatment Plan: * c/w current tx and plan * No new lab results noted thus far today * Vitals reviewed and noted below: Selected Entries 02/10/18 07:22 Temperature 97.7 F Pulse Rate 59 L Respiratory 20 Rate Blood Pressure 100/51 L Estimated Date of D/C: 02/12/18
--- NOTE | 2018-02-11 09:06 | PN ---
Copied To: Kishan Raymundo MD Attending MD: Kishan Raymundo MD DATE: 02/11/2018 SUBJECTIVE: She is in [facility], room 518, bed 1. She was admitted with depression, altered mental state associated with pseudosyncope. The patient has history of cardiac pacemaker for syncope. The patient has history of erratic behavior. The patient is improving clinically. PHYSICAL EXAMINATION: VITAL SIGNS: This morning, the pulse is 71, blood pressure 120/75, respirations are 20. LUNGS: The patient's lungs are clear. HEART: Normal sinus rhythm. ABDOMEN: Soft. Liver and spleen not palpable. SUPERINTENDENT CAR CONSTRUCTION: No focal deficit. MEDICATIONS: The patient's medications consist of Ativan. The patient is on Benadryl, Geodon and Haldol. ASSESSMENT AND PLAN: The diet is heart-healthy diet. We will continue medical management and followup. Kishan Raymundo MD
--- NOTE | 2018-02-11 10:12 | PCM.PYCHPN ---
Psychiatric Progress Note - Psychiatric Progress Note Patient seen today, length of contact: 30min Problems Identified/Issues Discussed: I reviewed recent notes and met with patient at bedside and during treatment team meeting. I am familiar with her from my prior interviews with her during this admission. She is cooperative and more engaged today. Her affect is definitely more related, reactive and much less labile. Grooming is acceptable and patient is oriented x3. She reports that she is "doing much better". She states that she "feels better" and "sleeps better". She denies any perceptual disturbance including paranoia. Thought process is coherent without evidence of disorganization. Patient wasn't observed to be responding to internal stimuli. She denies any side effects, new discomfort or pain. Patient has generally been calm and cooperative on the unit this week. Per Dr. Amin's note from 02/09/18, patient's last episodes of agitation and aggression was 02/06/18, she required IM PRN at the time. Patient is agreeable to discharge tomorrow. Diagnostic Results: bipolar type I most recent episode mixed Patient has history of borderline personality disorder OCD PTSD Social anxiety Medication Change: No ( ) Medical Record Reviewed: Yes Mental Status Examination - Cognitive Function Orientation: Person, Place, Situation, Time Memory: Intact Attention: Poor (some improvement) Concentration: Poor (some improvement) Association: Loose (some improvement) Fund of Knowledge: Poor - Mood Mood: Depressed (I feel little better), Anxious - Affect Affect: Constricted (but more reactive) - Speech Speech: Appropriate - Formal Thought Process Formal Thought Process: No Impairment - Suicidal Ideation Suicidal Ideation: No - Homicidal Ideation Homicidal Ideation: No Goal/Treatment Plan - Goal/Treatment Plan Need for Continued Stay: Remain at risks for inpatient hospitalization, Severe depression anxiety, Discharge may exacerbated symptoms, Failed transitioning, Severe functional impairment Progress Toward Problem(s) and Goals/Treatment Plan: * c/w current tx and plan * Appreciate f/u by Dr. Raymundo on 02/10/18~patient undergoing neurological evaluation for peudoseizures and high prolactin * No new lab results noted thus far today * Vitals reviewed and noted below: Selected Entries 02/10/18 02/10/18 07:22 16:05 Temperature 97.7 F Pulse Rate 59 L 64 Respiratory 20 Rate Blood Pressure 100/51 L 109/67 * I phoned [facility] at 10:15 am [phone] and authorized the following medications for a 14 day supply + 1RF * Klonopin 1 mg po TID * Trileptal 600 mg po bid * Paxil 40 mg po HS * Sonata 5 mg po HS prn * Geodon 20 mg po bid and 20 mg HS With meals Estimated Date of D/C: 02/12/18
[2018-02-12 07:22] VITALS: TEMP 97.9
--- NOTE | 2018-02-12 09:38 | PN ---
Copied To: Kishan Raymundo MD Attending MD: Kishan Raymundo MD DATE: 02/12/2018 SUBJECTIVE: The patient is in [facility]. She was admitted with depression, pseudosyncope. The patient has a cardiac pacemaker. She has been treated for depression in the past. She is ambulating. Today, the patient seemed to be pleasant and she says that it is possible that she will go home today and be an outpatient. PHYSICAL EXAMINATION: VITAL SIGNS: This morning, the pulse is 67, blood pressure 129/77, respirations are 20, the patient's temperature 97.9, the patient has 100% O2 on room air. HEENT: The patient's head is normocephalic. The patient has examination of the face of the chin area. LUNGS: Trachea central. Breath sounds vesicular. No adventitious sounds. HEART: Normal sinus rhythm. S1 and S2 present. No murmurs. ABDOMEN: Soft. Liver and spleen not palpable. Obesity present. BRIM CURLER: The patient is conscious, rationale at this time and oriented well to time, place and person. The patient has no focal neurological deficit. MEDICATIONS: The patient's medications consist of Ativan. The patient is on Benadryl, Haldol, Geodon. ASSESSMENT AND PLAN: The patient is clinically medically stable. The patient is going home. She will follow up with the primary care physician and also the Behavioral Care Unit physician. Kishan Raymundo MD
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
[2018-02-12 15:06] VITALS: BP 122/79; PULSE 82
== END 2018-02-12 16:56 | disposition home or self-care (01) | DRG 885 ==
LOC: ED 13:52 → ERH 14:05 → PSYC 15:31
PROVIDERS: ADMIT Psychiatry & Neurology Psychiatry; ATTEND Psychiatry & Neurology Psychiatry
DX: F31.60 Bipolar disorder, current episode mixed, unspecified (principal); Z68.41 Body mass index [BMI] 40.0-44.9, adult; F60.3 Borderline personality disorder; F42.9 Obsessive-compulsive disorder, unspecified; F43.10 Post-traumatic stress disorder, unspecified; F40.10 Social phobia, unspecified; F44.5 Conversion disorder with seizures or convulsions; G47.30 Sleep apnea, unspecified; I48.91 Unspecified atrial fibrillation; E66.9 Obesity, unspecified; R55 Syncope and collapse; Z95.0 Presence of cardiac pacemaker; Z91.410 Personal history of adult physical and sexual abuse; Z87.442 Personal history of urinary calculi; Z88.5 Allergy status to narcotic agent